=== PATIENT | female | born 2000 | race Caucasian/White ===

== ENCOUNTER 2023-06-30 14:05 | Outpatient (CLI) | payer OTHER ==
[~2023-06-30] VITALS: Ht 157.5 cm; Wt 72.2 kg
[2023-06-30 14:23] VITALS: BP 112/72
[2023-06-30] MEDS ORDERED: HOME MED LIST COMPLETE! XX SCH (14:35)
[2023-06-30 19:07] VITALS: BP 111/60
[2023-06-30] MEDS ORDERED: ONDANSETRON 4MG TAB PO ONE (19:25)
[2023-06-30] MEDS ORDERED: BETAMETHASONE SOLUSPAN 6MG/ML 5ML VIAL IM SCH (20:10)
[2023-06-30 21:11] VITALS: BP 117/71
[2023-06-30] MEDS ORDERED: CALCIUM CARBONATE 500 MG CHEW U/D PO PRN (23:00)
[2023-06-30] MEDS ORDERED: ONDANSETRON 4MG 2ML VIAL IV SCH (23:00)
[2023-07-01 00:56] VITALS: BP 125/58
[2023-07-01 03:11] VITALS: BP 102/55
[2023-07-01 06:34] VITALS: BP 103/57
[2023-07-01 07:14] VITALS: BP 115/67; O2SAT 96
== END 2023-07-01 07:42 ==
LOC: M LDO 14:05
PROVIDERS: ATTEND Advanced Practice Midwife
DX: O40.3XX9 Polyhydramnios, third trimester, other fetus (principal); O00-O9A Pregnancy, childbirth and the puerperium; Z3A.32 32 weeks gestation of pregnancy
CPT/HCPCS: 59025; 76811; 76820; 87635; 96372; 96374; G0463; J0702; J2405

== ENCOUNTER → 2023-06-30 | Outpatient (CLI) | payer OTHER | LOC: M WHC 10:50 | PROVIDERS: ATTEND Obstetrics & Gynecology | DX: Z34.93 Encounter for supervision of normal pregnancy, unspecified, third trimester (principal); Z3A.32 32 weeks gestation of pregnancy ==

== ENCOUNTER → 2023-08-01 | Outpatient (REF) | payer OTHER ==
[~2023-08-01] MED LIST: ACET-683 PO; COLA100C5 PO; IBUP-1022 PO; IRON27TA2 PO; OXYC-517 PO; PRENTAB9 PO
[2023-08-01 20:57] LABS: APPEARANCE, URINE HAZY (CLEAR); BACTERIA, URINE AUTO 1+ (NEGATIVE); BILIRUBIN, URINE AUTO NEGATIVE (NEGATIVE); BLOOD, URINE BLOOD NEGATIVE (NEGATIVE); COLOR, URINE YELLOW (YELLOW); GLUCOSE, URINE (UA) AUTO NEGATIVE (NEGATIVE); KETONE, URINE AUTO NEGATIVE (NEGATIVE); LEUKOCYTE ESTERASE, URINE AUTO TRACE (NEGATIVE); MUCUS, URINE SMALL (NEGATIVE); NITRITE, URINE AUTO NEGATIVE (NEGATIVE); PROTEIN, URINE AUTO NEGATIVE (NEGATIVE); RBC, URINE AUTO 0 /HPF (0-3); SPECIFIC GRAVITY URINE AUTO 1.017 (1.002-1.035); SQUAMOUS EPITHELIAL CELL UR AU 0 /HPF (0-6); UROBILINOGEN, URINE AUTO 0.2 mg/dL (0.0-2.0); WBC, URINE AUTO 3 /HPF (0-3)
== END ==
LOC: M LAB REF 20:19
PROVIDERS: ATTEND Physician Assistant Medical
DX: N39.0 Urinary tract infection, site not specified (principal)

== ENCOUNTER 2023-11-08 20:00 | Emergency (ER) | payer OTHER ==
[~2023-11-08] VITALS: Ht 160 cm; Wt 64.5 kg
[2023-11-08] MEDS ORDERED: LIDOCAINE 5% (LIDODERM) PATCH TD ONE (21:55)
[2023-11-08] MEDS: KETOROLAC 60MG 2ML VIAL IM ONE ×2 (21:55→22:11)
[2023-11-08 22:52] VITALS: BP 116/64; TEMP 97.7; O2SAT 100
[2023-11-08] MEDS ORDERED: LIDO5DIS41 TD (22:57)
[2023-11-08] MEDS ORDERED: IBUP-1022 PO (22:57)
[2023-11-08] MEDS ORDERED: KETOROLAC TROMETHAMINE 10 MG TAB PO ONE (23:00)
== END 2023-11-08 23:01 | disposition home or self-care (01) ==
LOC: M ED 20:00
DX: S33.5XXA Sprain of ligaments of lumbar spine, initial encounter (principal); W10.8XXA Fall (on) (from) other stairs and steps, initial encounter; Y92.9 Unspecified place or not applicable; Y93.9 Activity, unspecified; Y99.8 Other external cause status; Z79.899 Other long term (current) drug therapy; Z79.1 Long term (current) use of non-steroidal anti-inflammatories (NSAID); Z79.891 Long term (current) use of opiate analgesic

== ENCOUNTER 2024-05-12 18:54 | Emergency (ER) | payer OTHER ==
[~2024-05-12] VITALS: Ht 157.5 cm; Wt 60.0 kg
[~2024-05-12 18:54] MED LIST changes: +LIDO5DIS41 TD
[2024-05-12 19:47] LABS: BASO % 0.3 % (0.0-1.0); EOS % 0.2 % (0.0-3.0); HEMATOCRIT 41.4 % (36.0-47.0); HEMOGLOBIN 13.8 g/dl (12.0-15.5); LYMPH # 1.7 10^3/uL (1.5-5.0); LYMPH % 18.6 % (24.0-44.0); MEAN CORPUSCULAR HGB CONC 33.3 g/dl (32.0-36.5); MONO # 0.6 10^3/uL (0.0-0.8); MONO % 6.5 % (2.0-8.0); NEUTROPHILS # 6.9 10^3/uL (1.5-8.5); NEUTROPHILS % 74.1 % (36.0-66.0); PLATELET COUNT, AUTOMATED 308 10^3/uL (150-450); RED BLOOD COUNT 4.76 10^6/uL (4.00-5.40); WHITE BLOOD COUNT 9.4 10^3/uL (4.0-10.0)
[2024-05-12 20:02] LABS: LIPASE 26 U/L (12-53)
[2024-05-12 20:04] LABS: ALBUMIN 4.2 G/DL (3.2-5.2); ALKALINE PHOSPHATASE 134 U/L (46-116); ALT/SGPT 21 U/L (7.0-40); AST/SGOT 10 U/L (<34); BILIRUBIN,DIRECT 0.5 MG/DL (<0.4); BILIRUBIN,TOTAL 1.3 MG/DL (0.3-1.2); BLOOD UREA NITROGEN 8 MG/DL (9-23); CALCIUM LEVEL 9.2 MG/DL (8.5-10.1); CARBON DIOXIDE LEVEL 23 MMOL/L (20-31); CHLORIDE LEVEL 103 MMOL/L (98-107); CREATININE FOR GFR 0.58 MG/DL (0.55-1.30); GLOMERULAR FILTRATION RATE > 60.0 (>60); GLUCOSE, FASTING 76 MG/DL (60-100); POTASSIUM SERUM 3.5 MMOL/L (3.5-5.1); SODIUM LEVEL 137 MMOL/L (136-145); TOTAL PROTEIN 7.9 G/DL (5.7-8.2)
[2024-05-12] MEDS: METOCLOPRAMIDE INJ 10MG/2ML VIAL IV ONE (20:08)
[2024-05-12] MEDS: NS 1,000 ML IV ONE (20:08)
[2024-05-12 20:16] LABS: HCG, SERUM QUANTITATIVE 75228.4 MIU/ML (<4.2)
[2024-05-12] MEDS: ONDANSETRON 4MG 2ML VIAL IV ONE (21:52)
[2024-05-12] MEDS: NITROFURANTOIN (MACROBID) 100 MG CAP PO ONE (22:14)
[2024-05-12] MEDS ORDERED: MACR100C43 PO (22:19)
[2024-05-12] MEDS ORDERED: ONDA-282 PO (22:19)
[2024-05-12 22:34] VITALS: BP 110/56; TEMP 98.1; O2SAT 98
== END 2024-05-12 22:35 | disposition home or self-care (01) ==
LOC: M ED 18:54
DX: O23.10 Infections of bladder in pregnancy, unspecified trimester (principal); Z3A.01 Less than 8 weeks gestation of pregnancy; Z79.899 Other long term (current) drug therapy
CPT/HCPCS: 76801; 80048; 80076; 81001; 83690; 84702; 85025; 86850; 86900; 86901; 87086; 96361; 96374; 96375; 99284; J2405; J2765

== ENCOUNTER 2024-05-19 21:08 | Emergency (ER) | payer OTHER ==
[~2024-05-19] VITALS: Ht 160 cm; Wt 58.4 kg
[~2024-05-19 21:08] MED LIST changes: +MACR100C43 PO; +ONDA-282 PO
[2024-05-19 21:56] LABS: BASO % 0.3 % (0.0-1.0); EOS % 0.3 % (0.0-3.0); HEMOGLOBIN 14.2 g/dl (12.0-15.5); LYMPH # 1.9 10^3/uL (1.5-5.0); LYMPH % 19.3 % (24.0-44.0); MEAN CORPUSCULAR HEMOGLOBIN 29.3 pg (27.0-33.0); MEAN CORPUSCULAR HGB CONC 34.6 g/dl (32.0-36.5); MEAN CORPUSCULAR VOLUME 84.5 fl (80.0-96.0); MONO # 0.7 10^3/uL (0.0-0.8); MONO % 7.4 % (2.0-8.0); NEUTROPHILS % 72.4 % (36.0-66.0); PLATELET COUNT, AUTOMATED 288 10^3/uL (150-450); RED BLOOD COUNT 4.85 10^6/uL (4.00-5.40); WHITE BLOOD COUNT 9.6 10^3/uL (4.0-10.0)
[2024-05-19 22:19] LABS: BLOOD UREA NITROGEN 10 MG/DL (9-23); CARBON DIOXIDE LEVEL 22 MMOL/L (20-31); CHLORIDE LEVEL 105 MMOL/L (98-107); CREATININE FOR GFR 0.58 MG/DL (0.55-1.30); GLOMERULAR FILTRATION RATE > 60.0 (>60); GLUCOSE, FASTING 100 MG/DL (60-100); POTASSIUM SERUM 3.2 MMOL/L (3.5-5.1); SODIUM LEVEL 136 MMOL/L (136-145)
[2024-05-19] MEDS: ACETAMINOPHEN 325 MG TAB PO ONE (22:35)
[2024-05-19 22:54] LABS: HCG, SERUM QUANTITATIVE 167435.7 MIU/ML (<4.2)
[2024-05-19] MEDS ORDERED: REGL10TA6 PO (23:18)
[2024-05-19 23:24] VITALS: BP 113/69; TEMP 97.7; O2SAT 100
== END 2024-05-20 00:05 | disposition home or self-care (01) ==
LOC: M ED 21:08
DX: O23.591 Infection of other part of genital tract in pregnancy, first trimester (principal); O26.891 Other specified pregnancy related conditions, first trimester; Z3A.01 Less than 8 weeks gestation of pregnancy

== ENCOUNTER 2024-06-06 21:15 | Emergency (ER) | payer OTHER ==
[~2024-06-06] VITALS: Ht 157.5 cm; Wt 58.6 kg
[~2024-06-06 21:15] MED LIST changes: +REGL10TA6 PO
[2024-06-06] MEDS: ACETAMINOPHEN *IV* 1,000 MG in IV 1 EA IV ONE (22:52)
[2024-06-06 23:02] LABS: BASO % 0.3 % (0.0-1.0); EOS % 0.4 % (0.0-3.0); HEMATOCRIT 34.2 % (36.0-47.0); HEMOGLOBIN 11.6 g/dl (12.0-15.5); LYMPH # 1.9 10^3/uL (1.5-5.0); MEAN CORPUSCULAR HEMOGLOBIN 29.6 pg (27.0-33.0); MEAN CORPUSCULAR HGB CONC 33.9 g/dl (32.0-36.5); MEAN CORPUSCULAR VOLUME 87.2 fl (80.0-96.0); MONO # 0.6 10^3/uL (0.0-0.8); MONO % 7.3 % (2.0-8.0); NEUTROPHILS # 5.1 10^3/uL (1.5-8.5); NEUTROPHILS % 66.7 % (36.0-66.0); PLATELET COUNT, AUTOMATED 259 10^3/uL (150-450); RED BLOOD COUNT 3.92 10^6/uL (4.00-5.40); WHITE BLOOD COUNT 7.6 10^3/uL (4.0-10.0)
[2024-06-06 23:24] LABS: C REACTIVE PROTEIN QUANTITATIV < 0.40 MG/DL (<1.0)
[2024-06-06 23:26] LABS: BLOOD UREA NITROGEN 7 MG/DL (9-23); CALCIUM LEVEL 8.8 MG/DL (8.5-10.1); CARBON DIOXIDE LEVEL 25 MMOL/L (20-31); CHLORIDE LEVEL 107 MMOL/L (98-107); GLOMERULAR FILTRATION RATE > 60.0 (>60); GLUCOSE, FASTING 83 MG/DL (60-100); POTASSIUM SERUM 4.1 MMOL/L (3.5-5.1); SODIUM LEVEL 136 MMOL/L (136-145)
[2024-06-07 00:13] VITALS: BP 107/88; TEMP 98; O2SAT 98
== END 2024-06-07 00:28 | disposition home or self-care (01) ==
LOC: M ED 21:15
DX: O26.811 Pregnancy related exhaustion and fatigue, first trimester (principal); Z3A.10 10 weeks gestation of pregnancy
CPT/HCPCS: 80048; 85025; 86140; 93005; 96374; 99284; J0131

== ENCOUNTER → 2024-07-06 | Outpatient (CLI) | payer OTHER ==
[2024-07-06 17:43] LABS: HEMATOCRIT 38.6 % (36.0-47.0); HEMOGLOBIN 12.8 g/dl (12.0-15.5); MEAN CORPUSCULAR HGB CONC 33.2 g/dl (32.0-36.5); MEAN CORPUSCULAR VOLUME 87.5 fl (80.0-96.0); PLATELET COUNT, AUTOMATED 264 10^3/uL (150-450); RED BLOOD COUNT 4.41 10^6/uL (4.00-5.40); WHITE BLOOD COUNT 7.4 10^3/uL (4.0-10.0)
[2024-07-06 18:43] LABS: HIV 1&2 SCREEN NEGATIVE (NEGATIVE)
[2024-07-06 21:02] LABS: GC DNA AMPLIFICATION NEGATIVE (NEGATIVE)
== END ==
LOC: M PLALAB 14:29
PROVIDERS: ATTEND Advanced Practice Midwife
DX: Z34.81 Encounter for supervision of other normal pregnancy, first trimester (principal)

== ENCOUNTER → 2024-07-06 | Outpatient (REF) | payer OTHER | LOC: M PLALAB 14:12 | PROVIDERS: ATTEND Advanced Practice Midwife | DX: Z34.81 Encounter for supervision of other normal pregnancy, first trimester (principal) ==

== ENCOUNTER → 2024-08-06 | Outpatient (REF) | payer OTHER | LOC: M SFHCWAGY 12:25 | PROVIDERS: ATTEND Nurse Practitioner Family | DX: O34.211 Maternal care for low transverse scar from previous cesarean delivery (principal) ==

== ENCOUNTER → 2024-08-06 | Outpatient (REF) | payer OTHER | LOC: M PLALAB 11:38 | PROVIDERS: ATTEND Nurse Practitioner Family | DX: O34.211 Maternal care for low transverse scar from previous cesarean delivery (principal); Z53.9 Procedure and treatment not carried out, unspecified reason ==

== ENCOUNTER → 2024-08-26 | Outpatient (CLI) | payer OTHER | LOC: M RAD 09:38 | PROVIDERS: ATTEND Advanced Practice Midwife | DX: O34.211 Maternal care for low transverse scar from previous cesarean delivery (principal); Z3A.21 21 weeks gestation of pregnancy; O32.1XX0 Maternal care for breech presentation, not applicable or unspecified ==

== ENCOUNTER → 2024-10-22 | Outpatient (CLI) | payer MEDICAID, OTHER, SELFPAY ==
[~2024-10-22] MED LIST changes: +IBUP80TA PO; +PERCOCET PO
[2024-10-22 18:01] LABS: HEMATOCRIT 36.3 % (36.0-47.0); HEMOGLOBIN 11.9 g/dl (12.0-15.5); MEAN CORPUSCULAR HEMOGLOBIN 28.4 pg (27.0-33.0); MEAN CORPUSCULAR HGB CONC 32.8 g/dl (32.0-36.5); MEAN CORPUSCULAR VOLUME 86.6 fl (80.0-96.0); PLATELET COUNT, AUTOMATED 292 10^3/uL (150-450); RED BLOOD COUNT 4.19 10^6/uL (4.00-5.40); WHITE BLOOD COUNT 7.9 10^3/uL (4.0-10.0)
[2024-10-22 18:39] LABS: HIV 1&2 SCREEN NEGATIVE (NEGATIVE)
[2024-10-22 18:47] LABS: HEPATITIS C VIRUS ABY INDEX 0.05 INDEX (<0.8)
[2024-10-22 19:05] LABS: GC DNA AMPLIFICATION NEGATIVE (NEGATIVE)
== END ==
LOC: M PLALAB 16:04
PROVIDERS: ATTEND Nurse Practitioner Family
DX: O09.212 Supervision of pregnancy with history of pre-term labor, second trimester (principal); Z3A.00 Weeks of gestation of pregnancy not specified

== ENCOUNTER → 2024-10-26 | Outpatient (CLI) | payer MEDICAID, OTHER, SELFPAY | LOC: M RAD 15:36 | PROVIDERS: ATTEND Nurse Practitioner Family | DX: O09.212 Supervision of pregnancy with history of pre-term labor, second trimester (principal); Z3A.30 30 weeks gestation of pregnancy ==

== ENCOUNTER → 2024-11-17 | Outpatient (CLI) | payer OTHER ==
[~2024-11-17] MED LIST changes: -IBUP80TA PO; -PERCOCET PO
== END ==
LOC: M PLALAB 09:49
PROVIDERS: ATTEND Nurse Practitioner Family
DX: O09.212 Supervision of pregnancy with history of pre-term labor, second trimester (principal); Z3A.00 Weeks of gestation of pregnancy not specified

== ENCOUNTER 2024-11-21 18:10 | Outpatient (CLI) | payer MEDICAID, OTHER, SELFPAY ==
[~2024-11-21] VITALS: Ht 160 cm; Wt 69.9 kg
[2024-11-21 18:23] VITALS: BP 119/76
[2024-11-21] MEDS: LR 800 ML IV ONE (18:45)
[2024-11-21 19:09] LABS: HEMATOCRIT 33.7 % (36.0-47.0); MEAN CORPUSCULAR HGB CONC 32.6 g/dl (32.0-36.5); MEAN CORPUSCULAR VOLUME 82.6 fl (80.0-96.0); PLATELET COUNT, AUTOMATED 285 10^3/uL (150-450); RED BLOOD COUNT 4.08 10^6/uL (4.00-5.40)
[2024-11-21 19:23] LABS: KETONE, URINE AUTO RFX NEGATIVE (NEGATIVE); MUCUS, URINE RFX SMALL (NEGATIVE); NITRITE, URINE AUTO RFX NEGATIVE (NEGATIVE); RBC, URINE AUTO RFX 1 /HPF (0-3); SQUAM EPITHELIAL CELL UR AURFX 20 /HPF (0-6); WBC, URINE AUTO RFX 3 /HPF (0-3)
[2024-11-21 19:29] LABS: TOTAL PROTEIN,RANDOM URINE 33.6 MG/DL (0.0-14.0)
[2024-11-21 19:34] LABS: CREATININE,RANDOM URINE 179.5 MG/DL
[2024-11-21 19:43] LABS: LEUKOCYTE ESTERASE UR AUTO RFX TRACE (NEGATIVE)
[2024-11-21] MEDS: NIFEdipine 10 MG CAP PO STA (20:07)
[2024-11-21] MEDS: LR 1,000 ML IV SCH (20:08)
[2024-11-21 20:51] VITALS: BP 113/67
[2024-11-21] MEDS: BETAMETHASONE SOLUSPAN 6MG/ML 5ML VIAL IM SCH (20:52)
[2024-11-21 22:04] VITALS: BP 101/56
[2024-11-22] VITALS (7 sets, daily range): BP systolic 106–121; BP diastolic 57–75
[2024-11-22] MEDS ORDERED: MAG Sulf (OBGYN) 20GM/500ML 20,000 MG in IV 1 EA IV SCH
[2024-11-22] MEDS: NIFEdipine 10 MG CAP PO STA (00:55)
[2024-12-24] MEDS ORDERED: PERCOCET PO (09:07)
[2024-12-24] MEDS ORDERED: IBUP80TA PO (09:07)
[2024-12-24] MEDS ORDERED: COLA100C5 PO (09:07)
== END 2024-11-22 19:40 | disposition home or self-care (01) ==
LOC: M LDO 18:10
PROVIDERS: ATTEND Obstetrics & Gynecology
DX: O47.03 False labor before 37 completed weeks of gestation, third trimester (principal); O34.219 Maternal care for unspecified type scar from previous cesarean delivery; Z3A.34 34 weeks gestation of pregnancy; O26.873 Cervical shortening, third trimester
CPT/HCPCS: 59025; 76816; 76817; 76820; 81001; 82570; 84156; 85027; 86780; 86850; 86900; 86901; 87081; 87086; 96360; 96361; 96372; G0463; J0702

== ENCOUNTER → 2024-12-03 | Outpatient (REF) | payer OTHER | LOC: M SFHCWAGY 12:50 | PROVIDERS: ATTEND Obstetrics & Gynecology | DX: Z36.85 Encounter for antenatal screening for Streptococcus B (principal); Z3A.36 36 weeks gestation of pregnancy ==

== ENCOUNTER 2025-01-30 21:17 | Emergency (ER) | payer MEDICAID, OTHER ==
[~2025-01-30] VITALS: Ht 157.5 cm; Wt 65.3 kg
[~2025-01-30 21:17] MED LIST changes: +IBUP80TA PO; +PERCOCET PO
[2025-01-31] MEDS: IBUPROFEN 600MG TAB PO ONE (01:21)
[2025-01-31 01:43] VITALS: BP 144/70; TEMP 97; O2SAT 99
== END 2025-01-31 01:47 | disposition home or self-care (01) ==
LOC: M ED 21:17
DX: S39.012A Strain of muscle, fascia and tendon of lower back, initial encounter (principal); R10.2 Pelvic and perineal pain; W01.0XXA Fall on same level from slipping, tripping and stumbling without subsequent striking against object, initial encounter; Y92.009 Unspecified place in unspecified non-institutional (private) residence as the place of occurrence of the external cause; Y93.9 Activity, unspecified; Y99.9 Unspecified external cause status

== ENCOUNTER 2025-04-17 18:54 | Emergency (ER) | payer MEDICAID, OTHER ==
[~2025-04-17] VITALS: Ht 160 cm; Wt 60.4 kg
[~2025-04-17 18:54] MED LIST changes: +LIDO1ADH93 TD; -LIDO5DIS41 TD; +PROT1TAB2 PO
[2025-04-17 19:27] LABS: APPEARANCE, URINE CLOUDY (CLEAR); BACTERIA, URINE AUTO NEGATIVE (NEGATIVE); BILIRUBIN, URINE AUTO NEGATIVE (NEGATIVE); BLOOD, URINE BLOOD 3+ (NEGATIVE); GLUCOSE, URINE (UA) AUTO NEGATIVE (NEGATIVE); KETONE, URINE AUTO TRACE mg/dL (NEGATIVE); LEUKOCYTE ESTERASE, URINE AUTO 2+ (NEGATIVE); MUCUS, URINE LARGE (NEGATIVE); NITRITE, URINE AUTO NEGATIVE (NEGATIVE); PROTEIN, URINE AUTO 3+ mg/dL (NEGATIVE); RBC, URINE AUTO TNTC /HPF (0-3); SPECIFIC GRAVITY URINE AUTO 1.023 (1.002-1.035); SQUAMOUS EPITHELIAL CELL UR AU 11 /HPF (0-6); UROBILINOGEN, URINE AUTO 0.2 mg/dL (0.0-2.0); WBC, URINE AUTO TNTC /HPF (0-3)
[2025-04-17 20:20] LABS: BASO # 0.0 10^3/uL (0.0-0.2); BASO % 0.5 % (0.0-1.0); EOS # 0.0 10^3/uL (0.0-0.5); EOS % 0.5 % (0.0-3.0); LYMPH # 1.9 10^3/uL (1.5-5.0); LYMPH % 30.7 % (24.0-44.0); MONO # 0.5 10^3/uL (0.0-0.8); MONO % 7.9 % (2.0-8.0); NEUTROPHILS # 3.7 10^3/uL (1.5-8.5); NEUTROPHILS % 60.2 % (36.0-66.0); PLATELET COUNT, AUTOMATED 290 10^3/uL (150-450)
[2025-04-17] MEDS ORDERED: ISOVUE-370 76% 100 ML VIAL As Ordered ONE (20:20)
[2025-04-17 20:36] LABS: ALT/SGPT 41 U/L (7.0-40); AST/SGOT 23 U/L (<34); CALCIUM LEVEL 9.2 MG/DL (8.5-10.1); CARBON DIOXIDE LEVEL 26 MMOL/L (20-31); CHLORIDE LEVEL 106 MMOL/L (98-107); CREATININE FOR GFR 0.73 MG/DL (0.55-1.30); GLOMERULAR FILTRATION RATE > 90.0 (>60); POTASSIUM SERUM 4.3 MMOL/L (3.5-5.1); SODIUM LEVEL 141 MMOL/L (136-145)
[2025-04-17] MEDS: NS (Normal Saline) 0.9% 1,000 ML IV ONE (20:54)
[2025-04-17] MEDS: ACETAMINOPHEN *IV* 1,000 MG in IV 1 EA IV ONE (20:56)
[2025-04-17] MEDS: PHENAZOPYRIDINE 100 MG TAB PO ONE (21:33)
[2025-04-17 22:32] LABS: Trichomonas vaginalis (AMP) NOT DETECTED (NEGATIVE)
[2025-04-17 22:40] VITALS: BP 116/63; TEMP 98.5; O2SAT 100
[2025-04-17] MEDS: ONDANSETRON 4MG 2ML VIAL IV ONE (22:47)
[2025-04-17 22:56] LABS: GC DNA AMPLIFICATION NEGATIVE (NEGATIVE)
[2025-04-17] MEDS ORDERED: DOXY100T PO (23:03)
[2025-04-17] MEDS ORDERED: METR-265 PO (23:03)
[2025-04-17] MEDS: DOXYCYCLINE HYCLATE 100 MG TABLET PO ONE (23:23)
[2025-04-17] MEDS: LIDOCAINE 1% SDV 5 ML VIAL DILUENT ONE (23:23)
[2025-04-17] MEDS: cefTRIAXone 500 MG VIAL IM ONE (23:25)
== END 2025-04-17 23:28 | disposition home or self-care (01) ==
LOC: M ED 18:54
DX: N73.9 Female pelvic inflammatory disease, unspecified (principal); F12.10 Cannabis abuse, uncomplicated; K80.20 Calculus of gallbladder without cholecystitis without obstruction; Z79.899 Other long term (current) drug therapy
CPT/HCPCS: 74177; 76705; 80047; 80053; 81001; 84702; 85025; 87210; 87661; 87810; 87850; 96365; 96366; 96372; 99284; J0131; J0696; Q9967

== ENCOUNTER 2025-05-19 16:32 | Emergency (ER) | payer MEDICAID, OTHER ==
[~2025-05-19] VITALS: Ht 162.6 cm; Wt 62.4 kg
[~2025-05-19 16:32] MED LIST changes: +DOXY100T PO; +METR-265 PO
[2025-05-19] MEDS ORDERED: CEPH500C PO (17:03)
[2025-05-19 17:11] VITALS: BP 116/69; TEMP 98.5; O2SAT 99
== END 2025-05-19 17:22 | disposition home or self-care (01) ==
LOC: M ED 16:32
DX: L60.0 Ingrowing nail (principal); Z88.5 Allergy status to narcotic agent

== ENCOUNTER 2025-06-02 10:00 | Outpatient (RCR) | payer OTHER ==
[~2025-06-02 10:00] MED LIST changes: +CEPH500C PO; -IBUP-1022 PO; +IBUP600T42 PO
== END 2025-06-12 ==
LOC: M PT 10:00
PROVIDERS: ATTEND Obstetrics & Gynecology
DX: M79.604 Pain in right leg (principal)

== ENCOUNTER 2025-07-08 07:39 | Day surgery (SDC) | payer MEDICAID, OTHER ==
[~2025-07-08] VITALS: Ht 160 cm; Wt 59.4 kg
[~2025-07-08 07:39] MED LIST changes: +EXCETAB32 PO; +LIDOCAINE 2% 100 MG/5 ML SDV (FOR ANES.) As Ordered ONE; +MIDAZOLAM INJ 2 MG/2 ML VIAL As Ordered ONE; +MILI1TAB PO; +PANT40TA29 PO; +ROCURONIUM BROMIDE 50MG/5ML VIAL As Ordered ONE
[2025-07-08] MEDS ORDERED: LR 1,000 ML IV SCH ×2 (08:00→10:30)
[2025-07-08] MEDS ORDERED: dexAMETHasone 4 MG/ML 1 ML VIAL As Ordered ONE (09:49)
[2025-07-08] MEDS ORDERED: ACETAMINOPHEN 1000MG/100ML IV BAG As Ordered ONE (09:49)
[2025-07-08] MEDS ORDERED: SUGAMMADEX SODIUM 500 MG/5 ML VIAL As Ordered ONE (09:49)
[2025-07-08] MEDS ORDERED: KETOROLAC 30 MG/ML 1 ML VIAL As Ordered ONE (09:49)
[2025-07-08] MEDS ORDERED: ONDANSETRON 4MG 2ML VIAL As Ordered ONE (09:49)
[2025-07-08] MEDS: ONDANSETRON 4MG 2ML VIAL IV PRN (10:43)
[2025-07-08] MEDS: HYDROMORPHONE HCL 0.5 MG/0.5 ML SYRINGE IV PRN (10:44)
[2025-07-08 14:00] VITALS: BP 124/70; TEMP 98; O2SAT 100
== END 2025-07-08 14:45 | disposition home or self-care (01) ==
LOC: M SDC 07:39
PROVIDERS: ATTEND Surgery
DX: K80.10 Calculus of gallbladder with chronic cholecystitis without obstruction (principal); Z88.5 Allergy status to narcotic agent
CPT/HCPCS: 47562; 81025; 88304; J0131; J0665; J1100; J1171; J1885; J2250; J2405; J3010; S2900

== ENCOUNTER 2025-07-09 23:42 | Emergency (ER) | payer MEDICAID ==
[~2025-07-09] VITALS: Ht 160 cm; Wt 59.1 kg
[~2025-07-09 23:42] MED LIST changes: -LIDOCAINE 2% 100 MG/5 ML SDV (FOR ANES.) As Ordered ONE; -MIDAZOLAM INJ 2 MG/2 ML VIAL As Ordered ONE; -ROCURONIUM BROMIDE 50MG/5ML VIAL As Ordered ONE
[2025-07-10] MEDS: PERCOCET 5MG/325MG TAB PO ONE (02:12)
[2025-07-10 03:30] VITALS: BP 104/72; TEMP 98.1
[2025-07-10 03:37] VITALS: O2SAT 98
== END 2025-07-10 03:39 | disposition home or self-care (01) ==
LOC: M ED 23:42
DX: T81.89XA Other complications of procedures, not elsewhere classified, initial encounter (principal); K21.9 Gastro-esophageal reflux disease without esophagitis; Z79.82 Long term (current) use of aspirin; Z88.5 Allergy status to narcotic agent

== ENCOUNTER → 2025-07-21 | Outpatient (CLI) | payer MEDICAID, OTHER ==
[2025-07-21 10:34] LABS: BASO # 0.0 10^3/uL (0.0-0.2); BASO % 0.5 % (0.0-1.0); EOS # 0.1 10^3/uL (0.0-0.5); EOS % 1.5 % (0.0-3.0); LYMPH # 1.5 10^3/uL (1.5-5.0); LYMPH % 37.3 % (24.0-44.0); MONO # 0.3 10^3/uL (0.0-0.8); MONO % 8.4 % (2.0-8.0); NEUTROPHILS # 2.1 10^3/uL (1.5-8.5); NEUTROPHILS % 52.1 % (36.0-66.0); PLATELET COUNT, AUTOMATED 303 10^3/uL (150-450)
[2025-07-21 11:09] LABS: ALT/SGPT 41 U/L (7.0-40); AST/SGOT 22 U/L (<34); CALCIUM LEVEL 8.7 MG/DL (8.5-10.1); CARBON DIOXIDE LEVEL 25 MMOL/L (20-31); CHLORIDE LEVEL 105 MMOL/L (98-107); CREATININE FOR GFR 0.64 MG/DL (0.55-1.30); GLOMERULAR FILTRATION RATE > 90.0 (>60); POTASSIUM SERUM 4.3 MMOL/L (3.5-5.1); SODIUM LEVEL 138 MMOL/L (136-145)
== END ==
LOC: M LAB 09:43
PROVIDERS: ATTEND Physician Assistant
DX: K80.10 Calculus of gallbladder with chronic cholecystitis without obstruction (principal); K62.5 Hemorrhage of anus and rectum; M54.50 Low back pain, unspecified